=== PATIENT | female | born 1990 | race Two or more races ===

== ENCOUNTER 2022-07-10 11:30 | Inpatient (IN) | payer OTHER ==
[~2022-07-10] VITALS: Ht 160 cm; Wt 81.6 kg
[2022-07-10] MEDS ORDERED: CLONAZEPAM0.5 MG PO (12:54)
[2022-07-10] MEDS ORDERED: PROZAC PO (12:55)
[2022-07-10] MEDS ORDERED: MELATONIN5 M4 PO (12:56)
[2022-07-10] MEDS ORDERED: XANAX (12:56)
[2022-07-11] MEDS ORDERED: LOSARTAN POTASS50 MG (13:44)
[2022-07-11] MEDS ORDERED: FLUOXETINE HCL20 MG (13:45)
[2022-07-11] MEDS ORDERED: ALPRAZOLAM0.5 MG (13:45)
[2022-07-11] MEDS ORDERED: OLANZAPINE10 MG (13:45)
[2022-07-11] MEDS ORDERED: METOPROLOL SUCC25 MG (13:45)
== END 2022-07-13 13:49 | disposition home or self-care (01) | DRG 743 ==
LOC: ADM 11:30 → EDSTATUS 11:30 → O/R 07-11 06:57 → OB/GYN 07-11 06:57 → SURG 07-11 07:00 → OB/GYN 07-11 16:44
PROVIDERS: ADMIT Specialist; ATTEND Specialist
PROC: 0UDB7ZZ Extraction of Endometrium, Via Natural or Artificial Opening (ICD-10-PCS; 2022-07-11)
PROC: 0UQ90ZZ Repair Uterus, Open Approach (ICD-10-PCS; 2022-07-11)
PROC: 0UB90ZZ Excision of Uterus, Open Approach (ICD-10-PCS; principal; 2022-07-11 07:00)
DX: D25.9 Leiomyoma of uterus, unspecified (principal); N72 Inflammatory disease of cervix uteri; Z20.822 Contact with and (suspected) exposure to COVID-19